=== PATIENT | female | born 1940 | race Hispanic/Latino ===

== ENCOUNTER 2017-05-17 08:32 | Day surgery (SDC) | payer OTHER, MEDICARE ==
[2017-05-15 09:40] VITALS: BP 131/67
[2017-05-15 09:41] LABS: BASOPHILS % (AUTO) 0.6 % (0.0-5.0); EOSINOPHILS % (AUTO) 1.2 % (0.0-8.0); HEMATOCRIT 44.6 % (36-48); MEAN CORPUSCULAR HEMOGLOBIN 29.8 pg (27.0-33.0); MEAN CORPUSCULAR HGB CONC 33.2 g/dL (32.0-36.0); MEAN CORPUSCULAR VOLUME 89.7 fL (79-99); MONOCYTES % (AUTO) 7.3 % (3.0-13.0); NEUTROPHILS % (AUTO) 64.9 % (40.0-77.0); PLATELET COUNT (AUTO) 108 K/uL (130-400); RED BLOOD CELL COUNT(AUTO) 4.98 MIL/uL (4.00-5.50)
[2017-05-15 09:55] LABS: CREATININE 0.8 mg/dL (0.5-1.5); POTASSIUM 4.2 mmol/L (3.5-5.1)
[2017-05-15 09:57] LABS: INR 0.97 (0.85-1.15); PARTIAL THROMBOPLASTIN TIME 26.6 SEC (26.3-35.5); PROTHROMBIN TIME 10.2 SEC (9.6-11.6)
[~2017-05-17] VITALS: Ht 151.1 cm; Wt 71.8 kg
[~2017-05-17 08:32] MED LIST: AMIO200T2 PO; APIX5TAB PO; DONE5TAB33 PO; FURO20TA4 PO; LEVO5TAB13 PO; LINA5TAB PO; LOSA25TA21 PO; METO50TA18 PO; OMEP40CA37 PO; PRAV10TA39 PO
[2017-05-17 08:33] VITALS: BP 144/66
[2017-05-17] MEDS ORDERED: SODIUM CHLORIDE 0.9% 1000ML 1,000 ML IV ONE (08:43)
[2017-05-17] MEDS ORDERED: METO25TA6 PO (09:08)
== END 2017-05-17 09:20 | disposition home or self-care (01) ==
LOC: DAH 08:32
PROVIDERS: ATTEND Internal Medicine Cardiovascular Disease
DX: I48.92 Unspecified atrial flutter (principal); Z53.9 Procedure and treatment not carried out, unspecified reason; I10 Essential (primary) hypertension; E11.9 Type 2 diabetes mellitus without complications; G47.33 Obstructive sleep apnea (adult) (pediatric)
CPT/HCPCS: 36415; 80048; 85025; 85610; 85730; 93005; A4606; J7030

== ENCOUNTER 2019-04-15 14:48 | Inpatient (IN) | payer MEDICARE ==
[~2019-04-15] VITALS: Ht 162.6 cm; Wt 68.5 kg
[~2019-04-15 14:48] MED LIST changes: -AMIO200T2 PO; +AMIO200T5 PO; -LOSA25TA21 PO; +LOSA25TA41 PO; +METO25TA6 PO; -METO50TA18 PO; +OMEP40CA13 PO; -OMEP40CA37 PO
[2019-04-15 15:55] LABS: BASOPHILS % (AUTO) 0.9 % (0.0-5.0); EOSINOPHILS % (AUTO) 1.3 % (0.0-8.0); HEMATOCRIT 40.7 % (36-48); LYMPHOCYTES % (AUTO) 29.5 % (21.0-51.0); MEAN CORPUSCULAR HEMOGLOBIN 30.6 pg (27.0-33.0); MEAN CORPUSCULAR HGB CONC 33.8 g/dL (32.0-36.0); MEAN CORPUSCULAR VOLUME 90.4 fL (79-99); MONOCYTES % (AUTO) 9.6 % (3.0-13.0); NEUTROPHILS % (AUTO) 58.7 % (40.0-77.0); NUCLEATED RED BLOOD CELLS 0.1 % (0.0-0.19); PLATELET COUNT (AUTO) 139 K/uL (130-400); RED CELL DISTRIBUTION WIDTH 14.2 % (11.0-15.5); WHITE BLOOD COUNT (AUTO) 8.2 K/uL (4.8-10.8)
[2019-04-15 16:10] LABS: INR 0.95 (0.85-1.15); PARTIAL THROMBOPLASTIN TIME 23.3 SEC (26.3-35.5)
[2019-04-15] MEDS ORDERED: DILTIAZEM HCL 125 MG/25 ML VIAL IV ONE (16:10)
[2019-04-15 16:11] LABS: ALBUMIN 3.3 g/dL (3.5-5.0); BILIRUBIN,TOTAL 0.3 mg/dL (0.2-1.0); POTASSIUM 4.3 mmol/L (3.5-5.1); TOTAL PROTEIN, SERUM 6.9 g/dL (6.0-8.3)
[2019-04-15] MEDS ORDERED: SODIUM CHLORIDE 0.9% 100 ML IV ONE (16:11)
[2019-04-15 16:50] VITALS: BP 106/65
[2019-04-15] MEDS ORDERED: ENOXAPARIN SODIUM 30 MG/0.3 ML SQ SCH (17:30)
[2019-04-15] MEDS ORDERED: ONDANSETRON HCL 4 MG/2 ML VIAL IV PRN (17:30)
[2019-04-15] MEDS ORDERED: MECLIZINE HCL 12.5 MG TABLET PO PRN (18:15)
[2019-04-15] MEDS ORDERED: POTASSIUM CHLORIDE 10% ELIXIR 20 MEQ/15 ML UDCUP PO PRN (18:30)
[2019-04-15] MEDS ORDERED: POTASSIUM CHLORIDE 20MEQ/100ML 100 ML IV PRN (18:30)
[2019-04-15] MEDS ORDERED: POTASSIUM CHLORIDE 20 MEQ ERTAB PO PRN (18:30)
[2019-04-15] MEDS ORDERED: DILTIAZEM 125MG+100 ML NS 125 ML IV SCH (18:30)
[2019-04-15] MEDS ORDERED: LIDOCAINE HCL-MPF 1% 2ML VIAL IJ PRN (18:30)
[2019-04-15] MEDS ORDERED: SODIUM CHLORIDE 0.9% 10 ML VIAL IVP PRN (18:30)
[2019-04-15] MEDS: PROPAFENONE HCL 150 MG TABLET PO SCH (18:40)
[2019-04-15] MEDS: METFORMIN HCL 500 MG TAB.SR.24H PO SCH (18:40)
--- NOTE | 2019-04-15 20:00 | NUR ---
ORDERS SPOKE TO DR SALTER. ORDERS GIVEN FOR MEDS NEEDED FOR CARDIOVERSION. CONSENT TO BE SIGNED BY THE MORNING.
[2019-04-15 20:26] VITALS: BP 117/85
[2019-04-15] MEDS ORDERED: INSULIN HUMULIN R 100 UNIT/ML 3ML SQ SCH (21:00)
[2019-04-15] MEDS: DONEPEZIL HCL 5 MG TAB PO SCH (21:29)
[2019-04-15] MEDS: CETIRIZINE HCL 5 MG TABLET PO SCH (21:29)
[2019-04-15] MEDS: APIXABAN 5 MG TABLET PO SCH (21:29)
[2019-04-16] VITALS (25 sets, daily range): BP systolic 103–150; BP diastolic 61–109
[2019-04-16] MEDS: PROPAFENONE HCL 150 MG TABLET PO SCH ×3 (01:51→18:04)
[2019-04-16 04:36] LABS: BASOPHILS % (AUTO) 0.4 % (0.0-5.0); EOSINOPHILS % (AUTO) 1.7 % (0.0-8.0); HEMATOCRIT 39.6 % (36-48); MEAN CORPUSCULAR HEMOGLOBIN 30.8 pg (27.0-33.0); MEAN CORPUSCULAR HGB CONC 34.1 g/dL (32.0-36.0); MEAN CORPUSCULAR VOLUME 90.3 fL (79-99); NEUTROPHILS % (AUTO) 56.9 % (40.0-77.0); NUCLEATED RED BLOOD CELLS 0.1 % (0.0-0.19); PLATELET COUNT (AUTO) 113 K/uL (130-400); RED BLOOD CELL COUNT(AUTO) 4.38 MIL/uL (4.00-5.50); RED CELL DISTRIBUTION WIDTH 14.2 % (11.0-15.5); WHITE BLOOD COUNT (AUTO) 7.4 K/uL (4.8-10.8)
[2019-04-16 04:46] LABS: PROTHROMBIN TIME 10.5 SEC (9.6-11.6)
[2019-04-16 04:55] LABS: BILIRUBIN,TOTAL 0.4 mg/dL (0.2-1.0); CREATININE 0.8 mg/dL (0.5-1.5); MAGNESIUM 1.6 mg/dL (1.80-2.40); POTASSIUM 3.9 mmol/L (3.5-5.1); TOTAL PROTEIN, SERUM 6.4 g/dL (6.0-8.3)
--- NOTE | 2019-04-16 05:28 | NUR ---
Assessment PATIENT A/OX3, FORGETFUL. DENIES CHEST PAIN OR SOB. PATIENT REMAINS AFIB/ FLUTTER. PATIENT ON CARDIZEM DRIP AT 10ML/HR. HEART RATE WAS BELOW 80 SUSTAINING. DECREASED DRIP TO 5ML/HR. HR 60-90S. URINE SAMPLE NEEDED. PATIENT FAMILY REMOVED HAT FROM TOILET. UNABLE TO COLLECT URINE AT THIS TIME OR DOCUMENT OUTPUT. EDUCATED PATIENT AND FAMILY ON COLLECTION OF URINE. WILL CONTINUE TO MONITOR.
[2019-04-16] MEDS: MAGNESIUM 2GM PREMIX 50ML 50 ML IV PRN ×2 (06:03→09:23)
[2019-04-16] MEDS ORDERED: FLUMAZENIL 0.1MG/1ML 5ML VIAL IV SCH (06:30)
[2019-04-16] MEDS ORDERED: NALOXONE HCL 0.4 MG/1 ML ML IVP SCH (06:30)
[2019-04-16] MEDS ORDERED: MIDAZOLAM HCL 1 MG/ML 2ML VIAL IVP SCH (06:30)
[2019-04-16] MEDS ORDERED: FENTANYL CITRATE PF 50 MCG/1 ML 2ML VIAL IVP ONE (06:30)
[2019-04-16] MEDS ORDERED: SODIUM CHLORIDE 0.9% 1000ML 1,000 ML IV ONE (08:05)
--- NOTE | 2019-04-16 08:40 | NUR ---
PROCEDURE Time out performed @0840 with /pt. Bedside DCCV performed by . Conscious sedation administered by this RN. Refer to separate Sedation/Analgesia flow sheet.
[2019-04-16] MEDS ORDERED: FENTANYL CITRATE PF 50 MCG/1 ML 2ML VIAL ONE (08:50)
[2019-04-16] MEDS ORDERED: FENTANYL CITRATE PF 50 MCG/1 ML 2ML VIAL IVP SCH (09:00)
[2019-04-16] MEDS ORDERED: FAMOTIDINE/PF 20 MG/2 ML VIAL IV SCH (09:00)
[2019-04-16] MEDS: LINAGLIPTIN 5 MG TABLET PO SCH (10:11)
[2019-04-16] MEDS: MEMANTINE HCL 5 MG TABLET PO SCH (10:12)
[2019-04-16] MEDS: FUROSEMIDE 20 MG TABLET PO SCH (10:14)
[2019-04-16] MEDS: LOSARTAN 50 MG TABLET PO SCH (10:14)
[2019-04-16] MEDS: APIXABAN 5 MG TABLET PO SCH ×2 (10:18→20:27)
[2019-04-16] MEDS ORDERED: INSULIN LISPRO 100 UNIT/ML 3ML SQ SCH (11:30)
[2019-04-16] MEDS: INSULIN LISPRO 100 UNIT/ML 3ML SQ SCH ×2 (12:24→18:08)
--- NOTE | 2019-04-16 12:25 | NUR ---
RHYTHM CHANGE Primary nurse aware of rhythm change reported by tele child monitor.
[2019-04-16] MEDS: ACETAMINOPHEN 325 MG TAB PO PRN ×2 (12:59→16:33)
[2019-04-16] MEDS ORDERED: ACETAMINOPHEN 325 MG TAB PO PRN (16:30)
[2019-04-16] MEDS: DIGOXIN 125 MCG TABLET PO SCH (16:31)
[2019-04-16] MEDS: METFORMIN HCL 500 MG TAB.SR.24H PO SCH (16:31)
--- NOTE | 2019-04-16 17:43 | NUR ---
DC PLAN VISITED WITH PATIENT. PATIENT LIVES WITH SPOUSE. INDEPENDENT ABLE TO PERFORM ADL'S. PATIENT HAS NO SERVICES OR DME'S. FEELS SAFE TO RETURN HOME. Addendum: 04/16/19 at 1747 by MOLLY MILLS RN CM Amended: Links added.
[2019-04-16] MEDS: CETIRIZINE HCL 5 MG TABLET PO SCH (20:27)
[2019-04-16] MEDS: DONEPEZIL HCL 5 MG TAB PO SCH (20:28)
[2019-04-17] VITALS (7 sets, daily range): BP systolic 104–141; BP diastolic 69–84
[2019-04-17] MEDS: PROPAFENONE HCL 150 MG TABLET PO SCH ×3 (03:13→20:20)
[2019-04-17 03:46] LABS: BASOPHILS % (AUTO) 0.4 % (0.0-5.0); EOSINOPHILS % (AUTO) 1.7 % (0.0-8.0); HEMATOCRIT 40.5 % (36-48); LYMPHOCYTES % (AUTO) 31.1 % (21.0-51.0); MEAN CORPUSCULAR HEMOGLOBIN 30.5 pg (27.0-33.0); MEAN CORPUSCULAR HGB CONC 34.2 g/dL (32.0-36.0); MEAN CORPUSCULAR VOLUME 89.3 fL (79-99); MONOCYTES % (AUTO) 11.3 % (3.0-13.0); NEUTROPHILS % (AUTO) 55.5 % (40.0-77.0); PLATELET COUNT (AUTO) 126 K/uL (130-400); RED BLOOD CELL COUNT(AUTO) 4.53 MIL/uL (4.00-5.50); RED CELL DISTRIBUTION WIDTH 14.4 % (11.0-15.5); WHITE BLOOD COUNT (AUTO) 8.1 K/uL (4.8-10.8)
[2019-04-17 03:47] LABS: HEMOGLOBIN A1C 8.3 % (4.0-6.0)
[2019-04-17 04:07] LABS: CREATININE 0.7 mg/dL (0.5-1.5); MAGNESIUM 2.1 mg/dL (1.80-2.40); PHOSPHORUS 2.9 mg/dL (2.5-4.9)
[2019-04-17 04:28] LABS: THYROID STIMULATING HORMONE 0.83 uIU/mL (0.36-3.74)
[2019-04-17] MEDS: INSULIN LISPRO 100 UNIT/ML 3ML SQ SCH ×5 (06:46→20:46)
[2019-04-17] MEDS: LINAGLIPTIN 5 MG TABLET PO SCH (08:52)
[2019-04-17] MEDS: LOSARTAN 50 MG TABLET PO SCH (08:52)
[2019-04-17] MEDS: APIXABAN 5 MG TABLET PO SCH ×2 (08:52→20:20)
[2019-04-17] MEDS: FUROSEMIDE 20 MG TABLET PO SCH (08:53)
[2019-04-17] MEDS: MEMANTINE HCL 5 MG TABLET PO SCH (08:53)
[2019-04-17] MEDS: FAMOTIDINE 20MG TAB 20 MG TAB PO SCH (14:04)
[2019-04-17] MEDS: METFORMIN HCL 500 MG TAB.SR.24H PO SCH (18:02)
[2019-04-17] MEDS: DIGOXIN 125 MCG TABLET PO SCH (18:04)
--- NOTE | 2019-04-17 19:43 | NUR ---
ASSESSMENT PATIENT IS RESTING IN BED. ALERT AND ORIENTED X4. NO COMPLAINTS OF PAIN AT THIS TIME. NO SIGNS OF DISTRESS. NO SHORTNESS OF BREATH. PATIENTS CALL LIGHT AND BEDSIDE TABLE WITHIN REACH. FAMILY AT BEDSIDE. NO QUESTIONS, CONCERNS, OR NEEDS AT THIS TIME.
[2019-04-17] MEDS: DONEPEZIL HCL 5 MG TAB PO SCH (20:19)
[2019-04-17] MEDS: CETIRIZINE HCL 5 MG TABLET PO SCH (20:20)
--- NOTE | 2019-04-18 | NUR ---
ASSESSMENT PATIENT IS RESTING IN BED. NO COMPLAINTS OF PAIN. NO SIGNS OF DISTRESS. NO SHORTNESS OF BREATH. DAUGHTER IS AT BEDSIDE. CALLIGHT AND BED SIDE TABLE WITHIN REACH. NO COMPLAINTS, QUESTIONS, OR NEEDS AT THIS TIME. PATIENT REINFORCED TO CALL FOR ANY NEEDS.
[2019-04-18 03:15] VITALS: BP 120/75
--- NOTE | 2019-04-18 04:00 | NUR ---
ASSESSMENT PATIENT IS RESTING IN BED. NO COMPLAINTS OF PAIN. NO SIGNS OF DISTRESS. NO SHORTNESS OF BREATH. CALL LIGHT AND BEDSIDE TABLE WITHIN REACH. PATIENT REINFORCED TO CALL FOR ANY NEEDS.
[2019-04-18 04:17] LABS: BASOPHILS % (AUTO) 0.7 % (0.0-5.0); EOSINOPHILS % (AUTO) 1.3 % (0.0-8.0); HEMATOCRIT 42.7 % (36-48); LYMPHOCYTES % (AUTO) 30.2 % (21.0-51.0); MEAN CORPUSCULAR HEMOGLOBIN 30.4 pg (27.0-33.0); MEAN CORPUSCULAR HGB CONC 33.6 g/dL (32.0-36.0); MEAN CORPUSCULAR VOLUME 90.7 fL (79-99); MONOCYTES % (AUTO) 10.5 % (3.0-13.0); NEUTROPHILS % (AUTO) 57.3 % (40.0-77.0); NUCLEATED RED BLOOD CELLS 0.1 % (0.0-0.19); PLATELET COUNT (AUTO) 126 K/uL (130-400); RED BLOOD CELL COUNT(AUTO) 4.71 MIL/uL (4.00-5.50); RED CELL DISTRIBUTION WIDTH 14.3 % (11.0-15.5); WHITE BLOOD COUNT (AUTO) 7.9 K/uL (4.8-10.8)
[2019-04-18 04:30] LABS: CREATININE 0.8 mg/dL (0.5-1.5)
[2019-04-18] MEDS: PROPAFENONE HCL 150 MG TABLET PO SCH ×2 (06:19→13:33)
[2019-04-18] MEDS: INSULIN LISPRO 100 UNIT/ML 3ML SQ SCH ×2 (06:21→11:42)
[2019-04-18 08:44] VITALS: BP 135/88
[2019-04-18] MEDS: FAMOTIDINE 20MG TAB 20 MG TAB PO SCH (08:45)
[2019-04-18] MEDS: MEMANTINE HCL 5 MG TABLET PO SCH (08:46)
[2019-04-18] MEDS: FUROSEMIDE 20 MG TABLET PO SCH (08:46)
[2019-04-18] MEDS: APIXABAN 5 MG TABLET PO SCH (08:46)
[2019-04-18] MEDS: LINAGLIPTIN 5 MG TABLET PO SCH (08:46)
[2019-04-18] MEDS: LOSARTAN 50 MG TABLET PO SCH (08:46)
[2019-04-18 11:50] VITALS: BP 132/91
[2019-04-18] MEDS ORDERED: METF500T3 PO (15:52)
[2019-04-18] MEDS ORDERED: DIGO125T87 PO (15:52)
[2019-04-18] MEDS ORDERED: PROP150T28 PO (15:52)
--- NOTE | 2019-04-18 16:00 | NUR ---
DISCHARGE VERBAL & WRITTEN DISCHARGE INSTRUCTIONS REVIEWED & GIVEN TO PT & DAUGHTER. QUESTIONS ENCOURAGED & CLARIFIED. PROPER CARE & MGT OF AFIB REVIEWED. NEW PRESCRIBED MEDICATIONS REVIEWED. PT & DAUGHTER INFORMED PRESCRIPTION TRANSMITTED TO PHARMACY IN FILE. F/U APPT INFO REVIEWED. TELE ALLISON REMOVED EARLIER. IV DISCONTINUED. PT & FAMILY TO GATHER PERSONAL BELONGINGS. WILL NOTIFY STAFF WHEN READY TO BE TAKEN TO PRIVATE VEHICLE.
[2019-04-18 16:15] VITALS: BP 154/90
[2019-04-18] MEDS: METFORMIN HCL 500 MG TAB.SR.24H PO SCH (16:16)
[2019-04-18] MEDS: DIGOXIN 125 MCG TABLET PO SCH (16:16)
--- NOTE | 2019-04-18 16:20 | NUR ---
DISCHARGE PT TAKEN TO PRIVATE VEHICLE VIA C BY Dontae MORRISON PCP, ACCOMPANIED BY PT'S DAUGHTER. NO DISTRESS NOTED.
== END 2019-04-18 16:20 | disposition home or self-care (01) | DRG 309 ==
LOC: EDH 14:48 → EDHIP 14:49 → 2DH 17:14
PROVIDERS: ADMIT Internal Medicine; ATTEND Internal Medicine
PROC: 5A2204Z Restoration of Cardiac Rhythm, Single (ICD-10-PCS; principal; 2019-04-16)
DX: I48.0 Paroxysmal atrial fibrillation (principal); I50.32 Chronic diastolic (congestive) heart failure; E11.9 Type 2 diabetes mellitus without complications; I49.5 Sick sinus syndrome; G47.33 Obstructive sleep apnea (adult) (pediatric); Z82.5 Family history of asthma and other chronic lower respiratory diseases; I11.0 Hypertensive heart disease with heart failure
CPT/HCPCS: 36415; 71045; 71046; 80048; 80053; 82948; 83036; 83735; 83880; 84100; 84443; 85025; 85610; 85730; 93005; G0378; J1650; J2250; J3010; J3475; J3490; J7030

== ENCOUNTER 2019-04-20 12:19 | Inpatient (IN) | payer MEDICARE ==
[~2019-04-20] VITALS: Ht 154.9 cm; Wt 65.5 kg
[~2019-04-20 12:19] MED LIST changes: -AMIO200T5 PO; +DIGO125T87 PO; +METF500T3 PO; -METO25TA6 PO; +PROP150T28 PO
[2019-04-20 12:56] LABS: BASOPHILS % (AUTO) 0.7 % (0.0-5.0); EOSINOPHILS % (AUTO) 0.7 % (0.0-8.0); HEMATOCRIT 42.1 % (36-48); LYMPHOCYTES % (AUTO) 20.8 % (21.0-51.0); MEAN CORPUSCULAR HEMOGLOBIN 30.6 pg (27.0-33.0); MEAN CORPUSCULAR HGB CONC 33.6 g/dL (32.0-36.0); MEAN CORPUSCULAR VOLUME 91.1 fL (79-99); MONOCYTES % (AUTO) 9.2 % (3.0-13.0); NEUTROPHILS % (AUTO) 68.6 % (40.0-77.0); NUCLEATED RED BLOOD CELLS 0.1 % (0.0-0.19); PLATELET COUNT (AUTO) 154 K/uL (130-400); RED BLOOD CELL COUNT(AUTO) 4.62 MIL/uL (4.00-5.50); RED CELL DISTRIBUTION WIDTH 13.9 % (11.0-15.5); WHITE BLOOD COUNT (AUTO) 11.1 K/uL (4.8-10.8)
[2019-04-20 13:13] LABS: CREATININE 0.9 mg/dL (0.5-1.5); POTASSIUM 4.5 mmol/L (3.5-5.1)
[2019-04-20 13:26] LABS: ALBUMIN 3.2 g/dL (3.5-5.0); BILIRUBIN,TOTAL 0.4 mg/dL (0.2-1.0); THYROID STIMULATING HORMONE 1.42 uIU/mL (0.36-3.74); TOTAL PROTEIN, SERUM 7.2 g/dL (6.0-8.3)
[2019-04-20 13:29] LABS: INR 0.96 (0.85-1.15); PROTHROMBIN TIME 9.9 SEC (9.6-11.6)
[2019-04-20 13:42] LABS: APPEARANCE,URINE Clear (CLEAR); BILIRUBIN,URINE Negative (NEGATIVE); COLOR,URINE Yellow (YELLOW); GLUCOSE, URINE (UA) >=1000 mg/dL (NEGATIVE); KETONES,URINE Negative (NEGATIVE); LEUKOCYTE ESTERASE ,URINE Negative (NEGATIVE); NITRATE,URINE Negative (NEGATIVE); OCCULT BLOOD,URINE Negative (NEGATIVE); PH,URINE 6.5 (5.0-8.0); PROTEIN,URINE Negative (NEGATIVE)
[2019-04-20 13:57] LABS: BACTERIA,URINE Rare /HPF (None Seen); RBC,URINE 0-1 /HPF (0-1); SQUAMOUS EPITHELIAL CELL,UR Rare /HPF (0-2); WBC,URINE 0-1 /HPF (0-1)
[2019-04-20] MEDS ORDERED: TRAMADOL HCL 50 MG TABLET ONE (14:14)
[2019-04-20 14:18] LABS: B-TYPE NATRIURETIC PEPTIDE 82 pg/mL (0-100)
[2019-04-20] MEDS ORDERED: ACETAMINOPHEN 325 MG TAB PO PRN (15:30)
[2019-04-20] MEDS ORDERED: ONDANSETRON HCL 4 MG/2 ML VIAL IV PRN (15:30)
[2019-04-20] MEDS ORDERED: HYDRALAZINE HCL 20 MG/ML VIAL IV PRN (15:30)
[2019-04-20] MEDS: PROPAFENONE HCL 150 MG TABLET PO SCH ×2 (15:45→23:45)
[2019-04-20] MEDS ORDERED: KETOROLAC TROMETHAMINE 15MG/ML ONE (17:15)
[2019-04-20] MEDS ORDERED: DIGOXIN 250 MCG TABLET PO ONE (17:33)
[2019-04-20] MEDS ORDERED: PROPAFENONE HCL 150 MG TABLET ONE (18:26)
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
[2019-04-20 19:28] VITALS: BP 130/74
[2019-04-20] MEDS: FAMOTIDINE/PF 20 MG/2 ML VIAL IV SCH (20:31)
[2019-04-20] MEDS: ENOXAPARIN SODIUM 60 MG/0.6 ML SQ SCH (20:32)
--- NOTE | 2019-04-20 22:20 | NUR ---
HOSPITALIST HAD BEEN PAGED DUE TO PT HAVING NO DIET ORDER, AND ALSO NO INSULIN SCALE. [facility] AT THIS TIME HAS ORDERED CONSISTENT CARB DIET/HEART HEALTHY.
[2019-04-20 23:20] VITALS: BP 135/70
[2019-04-21] MEDS ORDERED: METO-391 PO (00:41)
[2019-04-21] MEDS ORDERED: ZOLP5TAB8 PO (00:41)
[2019-04-21] MEDS ORDERED: TRAM-355 PO (00:41)
[2019-04-21] MEDS ORDERED: MEMA5TAB15 PO (00:41)
[2019-04-21] MEDS: PROPAFENONE HCL 150 MG TABLET PO SCH ×3 (02:25→17:04)
[2019-04-21 03:40] VITALS: BP 136/77
[2019-04-21] MEDS: INSULIN HUMULIN R 100 UNIT/ML 3ML SQ SCH ×4 (06:23→21:17)
[2019-04-21 07:02] VITALS: BP 137/72
[2019-04-21] MEDS: LOSARTAN 50 MG TABLET PO SCH (07:53)
[2019-04-21] MEDS: FUROSEMIDE 20 MG TABLET PO SCH (07:53)
[2019-04-21] MEDS: PANTOPRAZOLE SODIUM 40 MG TABLET.DR PO SCH (07:53)
[2019-04-21] MEDS: DONEPEZIL HCL 5 MG TAB PO SCH (07:53)
[2019-04-21] MEDS: LINAGLIPTIN 5 MG TABLET PO SCH (07:53)
[2019-04-21] MEDS: FAMOTIDINE/PF 20 MG/2 ML VIAL IV SCH ×2 (07:54→20:06)
[2019-04-21] MEDS: ACETAMINOPHEN 325 MG TAB PO PRN (07:54)
[2019-04-21] MEDS: ENOXAPARIN SODIUM 60 MG/0.6 ML SQ SCH ×2 (07:54→20:08)
[2019-04-21] MEDS: METFORMIN HCL 500 MG TAB.SR.24H PO SCH (07:59)
--- NOTE | 2019-04-21 08:15 | NUR ---
ASSESSMENT PT IS AWAKE AND ALERT, RESTING IN BED. ASSISTED UP TO BEDSIDE, DENIES CP DENIES SOB DENIES NV. NO VISIBLE SIGNS OF DISTRESS NOTED. BREATHING PATTERN IS EVEN AND UNLABORED. CALL LIGHT WITHIN REACH. FAMILY IS AT BEDSIDE. PATIENT IS EATING BREAKFAST, AM MEDS GIVEN.
--- NOTE | 2019-04-21 08:30 | NUR ---
DR CHAND ROUNDED SAW PATIENT, ORDERS TO MAKE PT NPO FOR DR MELCHOR TO SEE PATIENT TODAY, POSSIBLE ABLATION PER DR MELCHOR.
[2019-04-21] MEDS: LIDOCAINE 5% TOPICAL PATCH TP SCH (09:26)
[2019-04-21] MEDS: BACLOFEN 10 MG TABLET PO SCH ×4 (09:26→20:07)
[2019-04-21 10:57] VITALS: BP 115/79
--- NOTE | 2019-04-21 12:30 | NUR ---
DR MELCHOR CALLED ORDERS RECEIVED, PLAN FOR ATRIAL FLUTTER ABLATION IN AM.
--- NOTE | 2019-04-21 13:52 | NUR ---
DC PLANNING PATIENT IS INDEPENDENT, LIVES WITH SPOUSE, HAS A PROVIDER 6HR PER DAY. PATIENT HAS CANE AND WALKER AT HOME BUT NO USING THEM YET. FEELS SAFE TO RETURN HOME. Addendum: 04/21/19 at 1358 by ALYSA ORDAZ Amended: Links added.
[2019-04-21] MEDS: IBUPROFEN 600 MG TABLET PO SCH ×3 (13:56→20:06)
[2019-04-21 14:58] VITALS: BP 131/68
[2019-04-21] MEDS ORDERED: DIGOXIN 125 MCG TABLET PO SCH (16:00)
[2019-04-21 19:53] VITALS: BP 121/77
--- NOTE | 2019-04-21 23:30 | NUR ---
PT STATED DIFFICULTY SLEEPING, STATES TAKES HOME MED FOR INSOMNIA. ZOLPIDEM 5MG HS HOME MED. NOTIFIED HOSPITALIST [employer] [facility]. NEW ORDER TO CONTINUE HOME MEDICATION. X1 DOSE AT THIS TIME.
[2019-04-21 23:34] VITALS: BP 112/82
[2019-04-22] VITALS (13 sets, daily range): BP systolic 108–138; BP diastolic 73–98
[2019-04-22] MEDS ORDERED: ZOLPIDEM TARTRATE 5 MG TAB ONE (00:23)
[2019-04-22] MEDS ORDERED: ZOLPIDEM TARTRATE 5 MG TAB PO ONE (00:30)
[2019-04-22] MEDS: PROPAFENONE HCL 150 MG TABLET PO SCH ×2 (02:35→10:00)
[2019-04-22 03:38] LABS: HEMATOCRIT 39.3 % (36-48); MEAN CORPUSCULAR HEMOGLOBIN 30.6 pg (27.0-33.0); MEAN CORPUSCULAR HGB CONC 34.1 g/dL (32.0-36.0); MEAN CORPUSCULAR VOLUME 89.9 fL (79-99); PLATELET COUNT (AUTO) 144 K/uL (130-400); RED BLOOD CELL COUNT(AUTO) 4.37 MIL/uL (4.00-5.50); RED CELL DISTRIBUTION WIDTH 13.7 % (11.0-15.5); WHITE BLOOD COUNT (AUTO) 8.6 K/uL (4.8-10.8)
[2019-04-22 03:46] LABS: CREATININE 0.8 mg/dL (0.5-1.5); POTASSIUM 4.1 mmol/L (3.5-5.1)
--- NOTE | 2019-04-22 04:30 | NUR ---
PT HAS BEEN CLIPPED AND PREPPED AT THIS TIME. IV PATENT. NO PAIN STATED. NO DISTRESS NOTED.
[2019-04-22] MEDS: IBUPROFEN 600 MG TABLET PO SCH ×3 (06:00→21:09)
[2019-04-22] MEDS: INSULIN HUMULIN R 100 UNIT/ML 3ML SQ SCH ×4 (06:53→21:20)
[2019-04-22] MEDS: METFORMIN HCL 500 MG TAB.SR.24H PO SCH (08:00)
--- NOTE | 2019-04-22 08:08 | NUR ---
Enedelia BARRAGAN PA-C, IN ROOM SPEAKING WITH PT. AND FAMILY MEMBERS AT BEDSIDE RE:PLAN OF CARE. QUESTIONS ANSWERED BY ALFONSO.
[2019-04-22] MEDS ORDERED: APIX5TAB PO (08:09)
[2019-04-22] MEDS: DONEPEZIL HCL 5 MG TAB PO SCH (08:16)
[2019-04-22] MEDS: LINAGLIPTIN 5 MG TABLET PO SCH (08:17)
[2019-04-22] MEDS: BACLOFEN 10 MG TABLET PO SCH ×3 (09:00→21:09)
[2019-04-22] MEDS: FAMOTIDINE/PF 20 MG/2 ML VIAL IV SCH ×2 (09:00→21:09)
[2019-04-22] MEDS: LIDOCAINE 5% TOPICAL PATCH TP SCH (09:00)
[2019-04-22] MEDS: LOSARTAN 50 MG TABLET PO SCH (09:00)
[2019-04-22] MEDS: FUROSEMIDE 20 MG TABLET PO SCH (09:00)
[2019-04-22] MEDS: PANTOPRAZOLE SODIUM 40 MG TABLET.DR PO SCH (09:00)
--- NOTE | 2019-04-22 09:00 | NUR ---
TO HEAVY LIFT RIGGER VIA BED ACCOMPANIED BY Britany AMEZQUITA RN.
[2019-04-22] MEDS ORDERED: LIDOCAINE HCL 2% 20ML ONE (09:32)
[2019-04-22] MEDS ORDERED: MIDAZOLAM HCL 1 MG/ML 2ML VIAL ONE ×3 (09:43→12:19)
[2019-04-22] MEDS ORDERED: MEPERIDINE-PF 50 MG/ML SYG ONE (09:43)
[2019-04-22] MEDS ORDERED: HEPARIN SODIUM 1000UNIT/ML 10ML VIAL ONE (10:30)
[2019-04-22] MEDS ORDERED: MEPERIDINE-PF 25 MG/ML SYG ONE (12:19)
[2019-04-22] MEDS ORDERED: VERAPAMIL HCL 2.5 MG/ML VIAL ONE (12:53)
[2019-04-22] MEDS ORDERED: AMIODARONE HCL 50 MG/ML 3 ML VIAL ONE (12:56)
--- NOTE | 2019-04-22 13:55 | NUR ---
RETURNED TO ROOM VIA BED ACCOMPANIED BY Britany AMEZQUITA RN. PT. DROWSY BUT AROUSABLE. DENIES ANY CURRENT SOB, DENIES ANY CURRENT PAIN. INSTRUCTED PT. ON STRICT BR PER MD ORDERS, VERBALIZED UNDERSTANDING. RIGHT GROIN WITH LIGHT DRSG IN PLACE, SLIGHT SANGUINEOUS DRAINAGE NOTED TO DRSG, MARKED; AREA SOFT, NO ECCHYMOSIS OR HEMATOMA NOTED. FEET WARM, PP'S (+) BILATERALLY. DENIES ANY C/O NUMBNESS OR TINGLING TO FEET. BED LOW, SIDE RAILS UP X3. CALL LIGHT WITHIN REACH, VERBALIZED ABILITY TO USE.
--- NOTE | 2019-04-22 18:25 | NUR ---
BR COMPLETED. RIGHT GROIN SOFT, NO ECCHYMOSIS OR HEMATOMA NOTED. ASSISTED TO SIT UP ON SIDE OF BED. CALL LIGHT WITHIN REACH. FAMILY MEMBERS AT BEDSIDE.
--- NOTE | 2019-04-22 19:36 | NUR ---
ASSESSMENT PATIENT IS RESTING IN BED. ALERT AND ORIENTED X3. FAMILY IS AT BEDSIDE. NO COMPLAINTS OF PAIN AT THIS TIME. NO SHORTNESS OF BREATH. NO SIGNS OF DISTRESS. CALL LIGHT AND BEDSIDE TABLE WITHIN REACH. REINFORCED PATIENT TO CALL FOR ANY NEEDS. NO QUESTIONS, CONCERNS, OR NEEDS AT THIS TIME.
[2019-04-22] MEDS: DRONEDARONE HYDROCHLORIDE 400 MG TABLET PO SCH (21:08)
[2019-04-22] MEDS: ZOLPIDEM TARTRATE 5 MG TAB PO SCH (21:09)
[2019-04-22] MEDS: APIXABAN 5 MG TABLET PO SCH (21:09)
[2019-04-22] MEDS: ACETAMINOPHEN 325 MG TAB PO PRN (23:36)
[2019-04-23 03:33] VITALS: BP 127/69
[2019-04-23] MEDS: INSULIN HUMULIN R 100 UNIT/ML 3ML SQ SCH ×4 (06:13→21:48)
[2019-04-23] MEDS: IBUPROFEN 600 MG TABLET PO SCH ×3 (06:27→21:39)
[2019-04-23 07:46] VITALS: BP 138/78
[2019-04-23] MEDS: LIDOCAINE 5% TOPICAL PATCH TP SCH (08:40)
[2019-04-23] MEDS: LINAGLIPTIN 5 MG TABLET PO SCH (08:41)
[2019-04-23] MEDS: DRONEDARONE HYDROCHLORIDE 400 MG TABLET PO SCH ×2 (08:41→21:39)
[2019-04-23] MEDS: FUROSEMIDE 20 MG TABLET PO SCH (08:42)
[2019-04-23] MEDS: METFORMIN HCL 500 MG TAB.SR.24H PO SCH (08:42)
[2019-04-23] MEDS: BACLOFEN 10 MG TABLET PO SCH ×3 (08:42→21:39)
[2019-04-23] MEDS: DONEPEZIL HCL 5 MG TAB PO SCH (08:42)
[2019-04-23] MEDS: APIXABAN 5 MG TABLET PO SCH ×2 (08:43→21:39)
[2019-04-23] MEDS: LOSARTAN 50 MG TABLET PO SCH (08:43)
[2019-04-23] MEDS: FAMOTIDINE/PF 20 MG/2 ML VIAL IV SCH ×2 (08:43→21:39)
[2019-04-23] MEDS: PANTOPRAZOLE SODIUM 40 MG TABLET.DR PO SCH (09:00)
[2019-04-23 12:16] VITALS: BP 128/70
[2019-04-23 15:25] VITALS: BP 118/82
[2019-04-23 19:40] VITALS: BP 127/71
[2019-04-23] MEDS: ZOLPIDEM TARTRATE 5 MG TAB PO SCH (21:39)
[2019-04-23] MEDS: ACETAMINOPHEN 325 MG TAB PO PRN (23:11)
[2019-04-23 23:30] VITALS: BP 136/70
[2019-04-24 04:04] VITALS: BP 141/98
[2019-04-24] MEDS: INSULIN HUMULIN R 100 UNIT/ML 3ML SQ SCH ×3 (06:01→16:30)
[2019-04-24] MEDS: IBUPROFEN 600 MG TABLET PO SCH ×2 (06:41→14:00)
[2019-04-24 08:15] VITALS: BP 143/97
[2019-04-24] MEDS: LOSARTAN 50 MG TABLET PO SCH (09:00)
[2019-04-24] MEDS: FUROSEMIDE 20 MG TABLET PO SCH (09:00)
[2019-04-24] MEDS: PANTOPRAZOLE SODIUM 40 MG TABLET.DR PO SCH (09:00)
[2019-04-24] MEDS: DRONEDARONE HYDROCHLORIDE 400 MG TABLET PO SCH (09:57)
[2019-04-24] MEDS: LIDOCAINE 5% TOPICAL PATCH TP SCH (09:57)
[2019-04-24] MEDS: FAMOTIDINE/PF 20 MG/2 ML VIAL IV SCH (09:57)
[2019-04-24 11:54] VITALS: BP 151/92
[2019-04-24] MEDS: BACLOFEN 10 MG TABLET PO SCH ×2 (14:00→14:23)
[2019-04-24] MEDS: APIXABAN 5 MG TABLET PO SCH (14:23)
[2019-04-24] MEDS: LINAGLIPTIN 5 MG TABLET PO SCH (14:23)
[2019-04-24] MEDS: METFORMIN HCL 500 MG TAB.SR.24H PO SCH (14:24)
[2019-04-24] MEDS: DONEPEZIL HCL 5 MG TAB PO SCH (14:24)
[2019-04-24] MEDS ORDERED: FURO20TA6 PO (15:05)
[2019-04-24] MEDS ORDERED: LOSA50TA2 PO (15:05)
[2019-04-24] MEDS ORDERED: LINA5TAB PO (15:05)
[2019-04-24] MEDS ORDERED: DRON400T2 PO (15:05)
[2019-04-24 16:13] VITALS: BP 143/58
== END 2019-04-24 16:40 | disposition home or self-care (01) | DRG 273 ==
LOC: EDH 12:19 → EDHIP 15:30 → 2AH 19:07
PROVIDERS: ADMIT Internal Medicine; ATTEND Internal Medicine
PROC: 5A2204Z Restoration of Cardiac Rhythm, Single (ICD-10-PCS; principal; 2019-04-22)
PROC: 02583ZZ Destruction of Conduction Mechanism, Percutaneous Approach (ICD-10-PCS; 2019-04-22)
PROC: 4A023FZ Measurement of Cardiac Rhythm, Percutaneous Approach (ICD-10-PCS; 2019-04-22)
PROC: 4A0234Z Measurement of Cardiac Electrical Activity, Percutaneous Approach (ICD-10-PCS; 2019-04-22)
PROC: 02K83ZZ Map Conduction Mechanism, Percutaneous Approach (ICD-10-PCS; 2019-04-22)
PROC: 5A2204Z Restoration of Cardiac Rhythm, Single (ICD-10-PCS; 2019-04-23)
DX: I48.92 Unspecified atrial flutter (principal); I50.31 Acute diastolic (congestive) heart failure; D68.59 Other primary thrombophilia; I48.0 Paroxysmal atrial fibrillation; M54.5 Low back pain; G47.33 Obstructive sleep apnea (adult) (pediatric); I49.5 Sick sinus syndrome; E11.9 Type 2 diabetes mellitus without complications; K80.20 Calculus of gallbladder without cholecystitis without obstruction; K74.60 Unspecified cirrhosis of liver; E78.2 Mixed hyperlipidemia; Z79.01 Long term (current) use of anticoagulants; Z83.3 Family history of diabetes mellitus; Z82.5 Family history of asthma and other chronic lower respiratory diseases; I11.0 Hypertensive heart disease with heart failure
CPT/HCPCS: 36415; 71045; 72100; 74176; 80048; 80053; 81001; 82550; 82948; 83880; 84443; 84484; 85025; 85027; 85610; 85730; 93005; 93613; 93621; 93653; 93655; 97039; 99156; 99157; C1894; G0378; J0282; J0690; J1644; J1650; J1815; J1885; J2175; J2250; J2370; J2704; J2710; J3490

== ENCOUNTER 2021-01-03 10:21 | Day surgery (SDC) | payer MEDICARE ==
[2020-12-29 16:22] LABS: BASOPHILS % (AUTO) 0.5 % (0.0-5.0); EOSINOPHILS % (AUTO) 1.9 % (0.0-8.0); HEMATOCRIT 41.5 % (36-48); LYMPHOCYTES % (AUTO) 34.1 % (21.0-51.0); MEAN CORPUSCULAR HGB CONC 31.6 g/dL (32.0-36.0); MONOCYTES % (AUTO) 7.4 % (3.0-13.0); NEUTROPHILS % (AUTO) 55.8 % (40.0-77.0); PLATELET COUNT (AUTO) 144 K/uL (130-400); RED BLOOD CELL COUNT(AUTO) 4.51 MIL/uL (4.00-5.50); RED CELL DISTRIBUTION WIDTH 14.5 % (11.0-15.5); WHITE BLOOD COUNT (AUTO) 8.7 K/uL (4.8-10.8)
[2020-12-29 16:29] LABS: CREATININE 1.2 mg/dL (0.5-1.5)
[2020-12-30 09:31] VITALS: BP 110/74
[~2021-01-03] VITALS: Ht 152.4 cm; Wt 72.6 kg
[~2021-01-03 10:21] MED LIST changes: +0.9%NACL 1000ML 1,000 ML IV SCH; +BACL10TA PO; -DIGO125T87 PO; -DONE5TAB33 PO; -FURO20TA4 PO; -LOSA25TA41 PO; +LOSA50TA2 PO; +MEMA5TAB42 PO; +METF-444 PO; -METF500T3 PO; +METO50TA18 PO; -OMEP40CA13 PO; +ONDA-104 PO; -PROP150T28 PO; +VERA120T13 PO
[2021-01-03 11:10] VITALS: BP 114/68
[2021-01-03 11:56] LABS: INR 1.07 (0.85-1.15); PROTHROMBIN TIME 11.6 SEC (9.6-11.6)
[2021-01-03 11:57] LABS: PARTIAL THROMBOPLASTIN TIME 27.4 SEC (26.3-35.5)
[2021-01-03] MEDS ORDERED: LIDOCAINE PF 100MG/5ML (2%) SYRINGE 5ML ONE (12:02)
[2021-01-03] MEDS ORDERED: PROPOFOL 10 MG/ML 20ML VIAL IV ONE (12:03)
[2021-01-03 12:20] VITALS: BP 106/66
== END 2021-01-03 12:30 | disposition home or self-care (01) ==
LOC: DAH 10:21
PROVIDERS: ATTEND Internal Medicine Cardiovascular Disease
DX: I48.4 Atypical atrial flutter (principal); Z53.8 Procedure and treatment not carried out for other reasons; E11.9 Type 2 diabetes mellitus without complications; I49.5 Sick sinus syndrome; I48.0 Paroxysmal atrial fibrillation; G47.33 Obstructive sleep apnea (adult) (pediatric); I10 Essential (primary) hypertension; Z79.899 Other long term (current) drug therapy; Z79.01 Long term (current) use of anticoagulants; Z98.890 Other specified postprocedural states
CPT/HCPCS: 36415 ×2; 80048; 82948; 85025; 85610; 85730; 87635; 93005 ×4; A4215; A4216; A4221; A4222; A4223 ×3; A4606; A4615; A4663; C9803; J2001; J2704; J7030

== ENCOUNTER 2021-07-17 07:19 | Day surgery (SDC) | payer OTHER, MEDICARE ==
[2021-07-14 12:41] VITALS: BP 140/75
[2021-07-14 12:45] LABS: BASOPHILS % (AUTO) 0.2 % (0.0-5.0); EOSINOPHILS % (AUTO) 1.1 % (0.0-8.0); HEMATOCRIT 42.4 % (36-48); LYMPHOCYTES % (AUTO) 26.1 % (21.0-51.0); MEAN CORPUSCULAR HEMOGLOBIN 28.9 pg (27.0-33.0); MEAN CORPUSCULAR HGB CONC 32.5 g/dL (32.0-36.0); MEAN CORPUSCULAR VOLUME 88.9 fL (79-99); MONOCYTES % (AUTO) 6.1 % (3.0-13.0); NEUTROPHILS % (AUTO) 66.1 % (40.0-77.0); PLATELET COUNT (AUTO) 138 K/uL (130-400); RED BLOOD CELL COUNT(AUTO) 4.77 MIL/uL (4.00-5.50); RED CELL DISTRIBUTION WIDTH 13.7 % (11.0-15.5); WHITE BLOOD COUNT (AUTO) 8.2 K/uL (4.8-10.8)
[2021-07-14 12:50] LABS: CREATININE 0.9 mg/dL (0.5-1.5); POTASSIUM 4.5 mmol/L (3.5-5.1)
[2021-07-14 12:52] LABS: INR 1.04 (0.85-1.15); PROTHROMBIN TIME 11.3 SEC (9.6-11.6)
[2021-07-14 12:53] LABS: PARTIAL THROMBOPLASTIN TIME 27.3 SEC (26.3-35.5)
[2021-07-17] VITALS (19 sets, daily range): BP systolic 93–173; BP diastolic 57–90
[~2021-07-17] VITALS: Ht 152.4 cm; Wt 72.5 kg
[~2021-07-17 07:19] MED LIST changes: -BACL10TA PO; +DRON400T7 PO; +FLOVENT IH; +LOSA25TA41 PO; -LOSA50TA2 PO; +MEMA10TA55 PO; -MEMA5TAB42 PO; +METO25TA6 PO; -METO50TA18 PO; +MULT-1250 PO; -VERA120T13 PO
== END 2021-07-17 11:00 | disposition home or self-care (01) ==
LOC: DAH 07:19 → CLH 07:19
PROVIDERS: ATTEND Internal Medicine Cardiovascular Disease
DX: I47.1 Supraventricular tachycardia (principal); Z20.822 Contact with and (suspected) exposure to COVID-19; I48.0 Paroxysmal atrial fibrillation; I25.10 Atherosclerotic heart disease of native coronary artery without angina pectoris; I49.5 Sick sinus syndrome; I10 Essential (primary) hypertension; E11.9 Type 2 diabetes mellitus without complications; G47.33 Obstructive sleep apnea (adult) (pediatric); Z79.84 Long term (current) use of oral hypoglycemic drugs; Z79.01 Long term (current) use of anticoagulants; Z79.899 Other long term (current) drug therapy; Z98.890 Other specified postprocedural states
CPT/HCPCS: 36415; 80048; 82948; 85025; 85610; 85730; 87426; 92960; 93005 ×2; A4215; A4216; A4221; A4222; A4223 ×3; A4606; A4663

== ENCOUNTER 2021-08-13 20:14 | Inpatient (IN) | payer OTHER, MEDICARE ==
[~2021-08-13] VITALS: Ht 152.4 cm; Wt 70.6 kg
[~2021-08-13 20:14] MED LIST changes: -0.9%NACL 1000ML 1,000 ML IV SCH
[2021-08-13] MEDS ORDERED: ONDANSETRON 4MG INJ IV PRN (21:00)
[2021-08-13] MEDS ORDERED: SOTALOL HCL 80 MG TABLET PO SCH (21:00)
[2021-08-13] MEDS ORDERED: ACETAMINOPHEN 325 MG TAB PO PRN (21:00)
[2021-08-13] MEDS: FAMOTIDINE 20MG VIAL IV SCH (22:18)
[2021-08-13 22:29] LABS: INR 1.01 (0.85-1.15)
[2021-08-13 22:30] LABS: PARTIAL THROMBOPLASTIN TIME 22.2 SEC (26.3-35.5)
[2021-08-13 22:32] LABS: ALBUMIN 3.5 g/dL (3.5-5.0); BILIRUBIN,TOTAL 0.3 mg/dL (0.2-1.0); CREATININE 0.8 mg/dL (0.5-1.5); MAGNESIUM 1.9 mg/dL (1.80-2.40); POTASSIUM 4.4 mmol/L (3.5-5.1); TOTAL PROTEIN, SERUM 7.3 g/dL (6.0-8.3)
[2021-08-13 22:39] LABS: BASOPHILS % (AUTO) 0.4 % (0.0-5.0); EOSINOPHILS % (AUTO) 2.2 % (0.0-8.0); HEMATOCRIT 42.9 % (36-48); LYMPHOCYTES % (AUTO) 32.3 % (21.0-51.0); MEAN CORPUSCULAR HEMOGLOBIN 29.2 pg (27.0-33.0); MEAN CORPUSCULAR HGB CONC 32.4 g/dL (32.0-36.0); MEAN CORPUSCULAR VOLUME 90.1 fL (79-99); MONOCYTES % (AUTO) 8.9 % (3.0-13.0); PLATELET COUNT (AUTO) 121 K/uL (130-400); RED BLOOD CELL COUNT(AUTO) 4.76 MIL/uL (4.00-5.50); RED CELL DISTRIBUTION WIDTH 13.9 % (11.0-15.5)
[2021-08-13 22:47] LABS: THYROID STIMULATING HORMONE 1.07 uIU/mL (0.36-3.74)
[2021-08-13 22:51] LABS: HEMOGLOBIN A1C 7.7 % (4.0-6.0)
[2021-08-13 23:00] VITALS: BP 127/76
[2021-08-13 23:16] LABS: PHOSPHORUS 2.9 mg/dL (2.5-4.9)
[2021-08-14] MEDS ORDERED: DEXTROSE 50%-WATER 50 ML DISP.SYRIN IV PRN (02:30)
[2021-08-14] MEDS ORDERED: GLUCAGON 1MG KIT 1 MG ML IM PRN (02:30)
[2021-08-14 03:00] VITALS: BP 138/80
[2021-08-14 07:00] VITALS: BP 131/93
[2021-08-14] MEDS: INSULIN HUMULIN R 100 UNIT/ML 3ML SQ SCH ×4 (07:19→21:00)
[2021-08-14] MEDS: FE FUMARATE/FA/MV, MIN COMB#15 1 TAB PO SCH (08:49)
[2021-08-14] MEDS: FAMOTIDINE 20MG VIAL IV SCH ×2 (08:49→20:56)
[2021-08-14] MEDS: APIXABAN 5 MG TABLET PO SCH ×2 (08:49→20:54)
[2021-08-14] MEDS: MEMANTINE HCL 5 MG TABLET PO SCH ×2 (08:49→20:52)
[2021-08-14] MEDS: LOSARTAN 25 MG TABLET PO SCH (08:49)
[2021-08-14 11:00] VITALS: BP 133/99
[2021-08-14] MEDS: SOTALOL HCL 80 MG TABLET PO SCH ×2 (11:25→20:53)
[2021-08-14 16:00] VITALS: BP 115/71
[2021-08-14] MEDS: FLOVENT IH SCH ×2 (20:00→20:09)
[2021-08-14] MEDS: NON-FORMULARY MEDICATION 1 EACH (Pravastatin Sodium 10 MG) PO SCH (20:00)
[2021-08-14 20:26] VITALS: BP 130/79
[2021-08-14] MEDS: LEVOCETIRIZINE DIHYDROCHLORIDE 5 MG PO SCH (21:07)
[2021-08-15] VITALS (7 sets, daily range): BP systolic 107–163; BP diastolic 71–93
[2021-08-15] MEDS: INSULIN HUMULIN R 100 UNIT/ML 3ML SQ SCH ×4 (06:37→20:31)
[2021-08-15] MEDS ORDERED: 0.9%NACL 1000ML 1,000 ML IV ONE (07:25)
[2021-08-15] MEDS ORDERED: PROPOFOL 10 MG/ML 20ML VIAL IV ONE (08:02)
[2021-08-15] MEDS: NON-FORMULARY MEDICATION 1 EACH (Pravastatin Sodium 10 MG) PO SCH (09:00)
[2021-08-15] MEDS: FLOVENT IH SCH ×2 (09:00→20:43)
[2021-08-15] MEDS: FE FUMARATE/FA/MV, MIN COMB#15 1 TAB PO SCH (11:45)
[2021-08-15] MEDS: LOSARTAN 25 MG TABLET PO SCH (11:45)
[2021-08-15] MEDS: SOTALOL HCL 80 MG TABLET PO SCH ×2 (11:45→20:29)
[2021-08-15] MEDS: LINAGLIPTIN 5 MG TABLET PO SCH (11:45)
[2021-08-15] MEDS: FAMOTIDINE 20MG VIAL IV SCH ×2 (11:45→20:29)
[2021-08-15] MEDS: MEMANTINE HCL 5 MG TABLET PO SCH ×2 (11:45→20:28)
[2021-08-15] MEDS: APIXABAN 5 MG TABLET PO SCH ×2 (11:47→20:29)
[2021-08-15] MEDS: LEVOCETIRIZINE DIHYDROCHLORIDE 5 MG PO SCH (20:43)
[2021-08-16 03:24] VITALS: BP 125/89
[2021-08-16] MEDS: INSULIN HUMULIN R 100 UNIT/ML 3ML SQ SCH ×3 (06:25→16:05)
[2021-08-16] MEDS: LOSARTAN 25 MG TABLET PO SCH (07:26)
[2021-08-16] MEDS: SOTALOL HCL 80 MG TABLET PO SCH (07:26)
[2021-08-16] MEDS: APIXABAN 5 MG TABLET PO SCH (07:26)
[2021-08-16] MEDS: LINAGLIPTIN 5 MG TABLET PO SCH (07:26)
[2021-08-16] MEDS: MEMANTINE HCL 5 MG TABLET PO SCH (07:26)
[2021-08-16] MEDS: FE FUMARATE/FA/MV, MIN COMB#15 1 TAB PO SCH (07:26)
[2021-08-16] MEDS: FAMOTIDINE 20MG VIAL IV SCH (07:27)
[2021-08-16 08:00] VITALS: BP 134/76
[2021-08-16] MEDS: NON-FORMULARY MEDICATION 1 EACH (Pravastatin Sodium 10 MG) PO SCH (08:57)
[2021-08-16] MEDS: FLOVENT IH SCH (08:58)
[2021-08-16 12:09] VITALS: BP 128/75
[2021-08-16] MEDS ORDERED: SOTA80TA PO (15:16)
[2021-08-16 15:33] VITALS: BP 135/78
== END 2021-08-16 18:42 | disposition home or self-care (01) | DRG 309 ==
LOC: 2AH 20:14
PROVIDERS: ADMIT Internal Medicine; ATTEND Internal Medicine
PROC: 5A2204Z Restoration of Cardiac Rhythm, Single (ICD-10-PCS; principal; 2021-08-15)
DX: I47.1 Supraventricular tachycardia (principal); D68.69 Other thrombophilia; I48.0 Paroxysmal atrial fibrillation; E78.5 Hyperlipidemia, unspecified; E11.9 Type 2 diabetes mellitus without complications; F02.80 Dementia in other diseases classified elsewhere, unspecified severity, without behavioral disturbance, psychotic disturbance, mood disturbance, and anxiety; I11.9 Hypertensive heart disease without heart failure; G30.9 Alzheimer's disease, unspecified; I20.9 Angina pectoris, unspecified; J45.909 Unspecified asthma, uncomplicated; Z96.653 Presence of artificial knee joint, bilateral; Z87.440 Personal history of urinary (tract) infections; Z82.5 Family history of asthma and other chronic lower respiratory diseases; Z83.3 Family history of diabetes mellitus; Z80.9 Family history of malignant neoplasm, unspecified; Z82.0 Family history of epilepsy and other diseases of the nervous system
CPT/HCPCS: 36415; 71045; 80053; 80061; 82330; 82948; 83036; 83735; 83880; 84100; 84443; 84484; 85025; 85610; 85730; 87635; 93005; G0378; J1815; J2704; J3490; J7030